=== PATIENT | male | born 1995 | race Caucasian/White ===

== ENCOUNTER 2022-09-18 12:07 | Emergency (ER) | payer MEDICAID ==
[~2022-09-18] VITALS: Ht 172.7 cm; Wt 95.3 kg
[2022-09-18 12:48] VITALS: BP 124/84
[2022-09-18] MEDS ORDERED: CEPH500T PO (13:26)
--- NOTE | 2022-09-18 13:32 | NUR ---
Patient discharged to home in stable condition. Written and verbal after care instructions given. Patient verbalizes understanding of instruction.
== END 2022-09-18 13:32 | disposition home or self-care (01) ==
LOC: ER 12:15
DX: L05.91 Pilonidal cyst without abscess (principal); Z79.899 Other long term (current) drug therapy